=== PATIENT | male | born 1945 | race Caucasian/White ===

== ENCOUNTER 2017-10-12 07:56 | Emergency (ER) | payer OTHER ==
[~2017-10-12] VITALS: Ht 180.3 cm; Wt 79.4 kg
[~2017-10-12 07:56] MED LIST: AMLODIPINE BESYL5 MG; BABY ASPIRIN81 MG; COUMADIN3 MG; COZAAR100 MG; COZAAR50 MG; GLYBURIDE MICRON3 MG PO; MOTRIN800 MG PO; PLAVIX75 MG PO; VITAMIN D35000 UNI1 PO
== END 2017-10-12 10:18 | disposition home or self-care (01) ==
LOC: ER 07:56
DX: J09.X2 Influenza due to identified novel influenza A virus with other respiratory manifestations (principal); B34.9 Viral infection, unspecified

== ENCOUNTER → 2018-09-17 | Outpatient (CLI) | payer OTHER | END | disposition home or self-care (01) | LOC: NUCLEAR 09-10 11:00 | DX: M85.88 Other specified disorders of bone density and structure, other site (principal) ==

== ENCOUNTER 2018-12-14 15:26 | Outpatient (CLI) | payer OTHER | END 2018-12-14 15:35 | disposition home or self-care (01) | LOC: RAD 15:26 | DX: M25.561 Pain in right knee (principal); J44.9 Chronic obstructive pulmonary disease, unspecified; I51.7 Cardiomegaly; I70.0 Atherosclerosis of aorta ==

== ENCOUNTER 2021-08-07 15:26 | Emergency (ER) | payer OTHER ==
[~2021-08-07] VITALS: Ht 167.6 cm; Wt 77.1 kg
== END 2021-08-07 19:06 | disposition home or self-care (01) ==
LOC: ER 15:26
DX: R00.2 Palpitations (principal)

== ENCOUNTER 2023-02-22 09:51 | Emergency (ER) | payer OTHER ==
[~2023-02-22] VITALS: Ht 180.3 cm; Wt 72.6 kg
[2023-02-22] MEDS ORDERED: LOSARTAN POTAS100 MG PO (10:12)
[2023-02-22] MEDS ORDERED: DUOFILM9.8 ML TOP (11:18)
[2023-02-22] MEDS ORDERED: CEPHALEXIN750 MG PO (11:18)
== END 2023-02-22 11:34 | disposition home or self-care (01) ==
LOC: ER 09:51
DX: B07.8 Other viral warts (principal); E11.9 Type 2 diabetes mellitus without complications; Z79.84 Long term (current) use of oral hypoglycemic drugs; I10 Essential (primary) hypertension

== ENCOUNTER 2023-03-06 10:09 | Emergency (ER) | payer OTHER ==
[~2023-03-06] VITALS: Ht 180.3 cm; Wt 72.6 kg
[~2023-03-06 10:09] MED LIST changes: +CEPHALEXIN750 MG PO; +DUOFILM9.8 ML TOP; +LOSARTAN POTAS100 MG PO
[2023-03-06] MEDS ORDERED: TYLENOL ARTHRI650 MG PO (12:46)
== END 2023-03-06 12:54 | disposition home or self-care (01) ==
LOC: ER 10:09
DX: M17.12 Unilateral primary osteoarthritis, left knee (principal); M25.562 Pain in left knee; E11.9 Type 2 diabetes mellitus without complications